=== PATIENT | male | born 1955 | race Hispanic/Latino ===

== ENCOUNTER 2018-08-14 15:46 | Observation (INO) | payer MEDICARE, OTHER ==
--- NOTE | 2018-08-14 16:11 | ED PDOC ---
Arrival/HPI - General Chief Complaint: Syncope Time Seen by Provider: 08/14/18 15:49 Historian: Patient - History of Present Illness Narrative History of Present Illness (Text): 08/14/18 16:11 A 63 ear old male presents to the emergency department for further evaluation. She notes that she was sitting in a park drinking water when he suddenly felt dizzy, lightheaded, and had a near syncopal episode. The patient notes that he did not eel his defibrillator fire. He notes that in the emergency department he is currently lightheaded. He is a pack per day smoker and daily beer drinker. The patient denies fevers, chills, headache, sore throat, cough, chest pain, shortness of breath, dyspnea on exertion, abdominal pain, nausea, vomiting, diarrhea, neck/back pain, urinary/bowel changes or any other complaint. PMD: Dr. Hernández Time/Duration: Prior to Arrival Symptom Onset: Sudden Symptom Course: Unchanged Activities at Onset: Rest, Light Context: Sitting Associated Symptoms (Text): 08/14/18 16:29 Patient was sitting in the park having a bottle water when he suddenly became dizzy and lightheaded and near syncopal. There is no actual loss of consciousness. No headache. No chest pain palpitations or dyspnea. His defibrillator did not fire. No abdominal pain nausea or vomiting. He has never felt this way previously. Past Medical History - Provider Review Nursing Documentation Reviewed: Yes - Cardiac Hx Atrial Fibrillation: Yes Hx Congestive Heart Failure: Yes Hx Hypertension: Yes - Psychiatric Hx Substance Use: No - Surgical History Other/Comment: Pacemaker, AICD Family/Social History - Physician Review Nursing Documentation Reviewed: Yes Family/Social History: No Known Family HX Smoking Status: Heavy Smoker > 10 Cigarettes Daily Hx Alcohol Use: Yes Frequency of alcohol use: Daily Hx Substance Use: No Allergies/Home Meds Allergies/Adverse Reactions: Allergies No Known Allergies Allergy (Verified 08/14/18 15:54) Home Medications: Home Meds Medication Instructions Recorded Confirmed Apixaban [Eliquis] 08/14/18 Digoxin [Lanoxin] 08/14/18 Furosemide [Lasix] 40 mg PO DAILY 08/14/18 08/14/18 Review of Systems - Physician Review All systems were reviewed & negative as marked: Yes - Review of Systems Constitutional: absent: Fatigue, Fevers ENT: absent: Sore Throat Respiratory: absent: SOB, Cough Cardiovascular: absent: Chest Pain, Palpitations, MARTINEZ Gastrointestinal: absent: Abdominal Pain, Stool Changes, Diarrhea, Nausea, Vomiting Genitourinary Male: absent: Urinary Output Changes Musculoskeletal: absent: Back Pain, Neck Pain Neurological: Dizziness. absent: Headache, Focal Weakness, Gait Changes Physical Exam Temperature: Afebrile Blood Pressure: Hypotensive Pulse: Regular Respiratory Rate: Normal Appearance: Positive for: Ill-Appearing (Chronically ill appearing.), Cachectic Pain Distress: None Mental Status: Positive for: Alert and Oriented X 3 - Systems Exam Head: Present: Atraumatic, Normocephalic Pupils: Present: PERRL Extroacular Muscles: Present: EOMI Conjunctiva: Present: Normal Ears: Present: NORMAL TM, Normal Canal. No: Erythema, TM Bulging Mouth: Present: Moist Mucous Membranes Pharnyx: No: ERYTHEMA, EXUDATE, TONSILS ENLARGED Neck: Present: Normal Range of Motion Respiratory/Chest: Present: Decreased Breath Sounds (Lung sounds diminished.). No: Accessory Muscle Use, Wheezes, Rales, Retracting, Rhonchi, Tachypneic Cardiovascular: Present: Regular Rate and Rhythm, Normal S1, S2. No: Murmurs Abdomen: No: Tenderness, Distention, Peritoneal Signs Back: Present: Normal Inspection Upper Extremity: Present: Normal Inspection. No: Cyanosis, Edema Lower Extremity: Present: Normal Inspection. No: Edema Neurological: Present: GCS=15, CN II-XII Intact, Speech Normal, Motor Func Grossly Intact, Normal Sensory Function, Normal Cerebellar Funct Skin: Present: Warm, Dry, Normal Color. No: Rashes Psychiatric: Present: Alert, Oriented x 3, Normal Insight, Normal Concentration Medical Decision Making ED Course and Treatment: 08/14/18 16:16 Impression: A 63 year old male who presents to the emergency department for further evaluation of dizziness and a post syncopal episode while sitting in a park today. Plan: -- EKG -- Chest X-ray -- Labs -- IV Fluids -- Reassess and disposition Prior Visits: Notes and results from previous visits were reviewed. Progress Notes: 08/14/18 16:30 EKG is ventricular pacing rate approximately 70 08/14/18 17:03 Discussed in detail with , who requests CT scan of the head and consultation with Dr. Kelsey and will be placed on telemetry observation. 08/14/18 18:02 Patient is feeling much better. He is no longer hypotensive. Agrees to telemetry admission. - Lab Interpretations I have reviewed the lab results: Yes - RAD Interpretation Radiology Orders: 08/14/18 15:58 CHEST PORTABLE [RAD] Stat X-ray chest one view as read by the radiologist shows no acute findings. Pacemaker present. Senior Media Director: Radiologist - EKG Interpretation Interpreted by ED Physician: Yes Type: 12 lead EKG - Scribe Statement Ashley Blackwood Provider Scribe Attestation: All medical record entries made by the Scribe were at my direction and personally dictated by me. I have reviewed the chart and agree that the record accurately reflects my personal performance of the history, physical exam, medical decision making, and the department course for this patient. I have also personally directed, reviewed, and agree with the discharge instructions and di sposition. Disposition/Present on Arrival - Present on Arrival Any Indicators Present on Arrival: No History of DVT/PE: No History of Uncontrolled Diabetes: No Urinary Catheter: No History of Decub. Ulcer: No History Surgical Site Infection Following: None - Disposition Have Diagnosis and Disposition been Completed?: Yes Diagnosis: Hypotension, Near syncope, Dizziness Disposition: HOSPITALIZED Disposition Time: 18:11 Patient Plan: Observation, Telemetry Condition: IMPROVED Forms: [facility] (Erit[place]an)
[2018-08-14] MEDS ORDERED: Sodium Chloride 0.9% 500 ML IV ONE (16:14)
[2018-08-14 16:31] LABS: BASO # 0.03 K/mm3 (0.0-2.0); BASO % 0.3 % (0.0-3.0); EOS # 0.1 (0.0-0.7); EOS % 0.9 % (1.5-5.0); GRAN # 7.65 (1.4-6.5); HEMOGLOBIN 14.1 g/dL (14.0-18.0); LYMPH # 2.1 (1.2-3.4); LYMPH % 19.8 % (22.0-35.0); MEAN CELL VOLUME 86.9 fl (80.0-105.0); MEAN CORPUSCULAR HEMOGLOBIN 29.3 pg (25.0-35.0); MEAN CORPUSCULAR HGB CONC 33.7 g/dl (31.0-37.0); MEAN PLATELET VOLUME 11.1 fl (7.0-11.0); MONO # 0.6 (0.1-0.6); RBC 4.82 10^6/uL (3.5-6.1); WHITE BLOOD COUNT 10.5 10^3/ul (4.5-11.0)
[2018-08-14 16:38] LABS: INR 1.72; PROTHROMBIN TIME 19.8 SECONDS (9.4-12.5)
[2018-08-14 16:39] LABS: ALB/GLOB RATIO 1.3 (1.1-1.8); ALBUMIN 3.9 g/dL (3.0-4.8); ALT/SGPT 23 U/L (7-56); AST/SGOT 26 U/L (17-59); BLOOD UREA NITROGEN 12 mg/dL (7-21); GFR NON-AFRICAN AMERICAN > 60
--- NOTE | 2018-08-14 16:46 | RAD ---
Date of service: 08/14/2018 HISTORY: Syncope COMPARISON: 04/19/2014 FINDINGS: LUNGS: Hyperinflation, manifestations of COPD. No active pulmonary disease. PLEURA: No significant pleural effusion identified, no pneumothorax apparent.Incidental finding(s): Stable pleural plaques/calcified left pleural space. CARDIOVASCULAR: No radiographic findings to suggest acute or significant cardiovascular disease. Position/ configuration of pacemaker device: Satisfactory. OSSEOUS STRUCTURES: No significant abnormalities. VISUALIZED UPPER ABDOMEN: Normal. OTHER FINDINGS: None. IMPRESSION: No active disease. No significant interval change compared to the prior examination(s).
[2018-08-14 16:51] LABS: B-TYPE NATRIURETIC PEPTIDE 1170 pg/mL (0-450); TROPONIN I < 0.01 ng/mL
--- NOTE | 2018-08-14 19:43 | HP ---
HISTORY OF PRESENT ILLNESS: I was called down to the ER to admit Asad to the hospital. He is a 63-year-old man who comes in with dizziness, lightheadedness, having near syncopal episode. He has had these before, but not as bad as this and he came to the emergency room, called 911. He did not feel his defibrillator fire. He is a major smoker and major daily drinker. He is a 63-year-old white male who suddenly became dizzy, lightheaded and near syncope. No actual loss of consciousness. No headache. No chest pain. No palpitation. No shortness of breath. He has a defibrillator, but it did not fire. No abdominal pain. No nausea or vomiting. He never felt this way this bad this seriously. He has a history of congestive heart failure, atrial fibrillation, hypertension. He has got pacemaker, AICD implanted. FAMILY HISTORY: There is heart disease in the family. SOCIAL HISTORY: He still smokes cigarettes a pack a day. He still drinks two to four beers every day daily. No substance abuse. ALLERGIES: NO KNOWN DRUG ALLERGIES. MEDICATIONS: He is on Eliquis, Lanoxin and Lasix. REVIEW OF SYSTEMS: No fatigue or fevers. No sore throat. No vision or hearing changes. No shortness of breath or cough. No chest pain, palpitations, or dyspnea on exertion. No abdominal pain. No stool changes. No diarrhea, nausea, vomiting, constipation. No problems urinating. No back pain. No neck pain. He was acutely dizzy. No headache, focal weakness, gait changes or loss of consciousness. PHYSICAL EXAMINATION: VITAL SIGNS: He has a 97.4 temperature, 70 pulse. He came in, he had 95/64 blood pressure, now it is up to 109/71 after about 500 mL of fluids. He did not eat or drink today and he took his Lasix. He did drink beer. He has an 80 respiratory rate, 100% O2 sat on room air. HEENT: Head: Atraumatic, normocephalic. Extraocular muscles are intact. Pupils equally, reactive to light and accommodation. Right now, no dizziness. His ears had no erythema. Mucous membranes are moist. NECK: Supple. Good range of motion. HEART: Regular rate. Normal S1, S2. LUNGS: Decreased breath sounds bilaterally, poor inspiration. He definitely sounds like a smoker, but no wheezes, rhonchi or rales. ABDOMEN: Soft, nontender. Positive bowel sounds. No guarding or rebound. No CVA tenderness. EXTREMITIES: Have no edema. NEUROLOGY: GCS is 15. Cranial nerves II-XII grossly intact. Speech is normal. He is not dizzy at this time. He can move all four extremities well. He can smile. He can stick out his tongue centrally. His eyes can close and open easily. He can follow my finger in an age pattern. Neurologic at this time, he feels back to his old normal self. SKIN: Warm and dry. PSYCHIATRIC: Alert and oriented x3. Normal insight. Normal concentration. LABORATORY DATA: He had a bunch of tests done. He has alcohol level less than 10. He has 137 sodium, potassium 3.9, BUN 12, creatinine 1.2, GFR is greater than 60, sugar is 109, calcium is 9, magnesium is 1.7, total bili is 0.5, AST is 26, ALT is 23, alk phos 67, lactate dehydrogenase is 331, total creatine kinase is 45. Troponin I is less than 0.01. BNP is high at 1170, but he looks dry. His total protein is 6.9, albumin is 3.9. He has 1.72 INR, not on Coumadin. He is on Eliquis. White count 10.5, 14.1 hemoglobin, 41.9 hematocrit, 186 platelets. Chest x-ray showed no active disease. Head CAT scan is pending. He will have a consult with Cardiology and Neurology. He will be on his Eliquis and his Lanoxin. He already had his IV 500 mL. His blood pressure looks good. I will hold his Lasix for now. I am hoping that he eats. We will watch him overnight on telemetry. He is on observation. He is here for near syncope. We will see what Cardiology and Neurology has to say. Thank you very much. Robert Higgins DO
[2018-08-14 20:44] VITALS: BMI 18.9
[2018-08-14 23:23] VITALS: O2SAT 98
[2018-08-15 05:41] VITALS: PULSE 70
[2018-08-15 06:42] LABS: HEMOGLOBIN 13.6 g/dL (14.0-18.0); MEAN CELL VOLUME 87.6 fl (80.0-105.0); MEAN CORPUSCULAR HEMOGLOBIN 30.1 pg (25.0-35.0); MEAN CORPUSCULAR HGB CONC 34.3 g/dl (31.0-37.0); MEAN PLATELET VOLUME 12.1 fl (7.0-11.0); RBC 4.52 10^6/uL (3.5-6.1); RED CELL DISTRIBUTION WIDTH 15.2 % (11.5-14.5)
[2018-08-15 07:19] LABS: ALB/GLOB RATIO 1.2 (1.1-1.8); ALBUMIN 3.3 g/dL (3.0-4.8); ALT/SGPT 22 U/L (7-56); AST/SGOT 22 U/L (17-59); BLOOD UREA NITROGEN 15 mg/dL (7-21); CALCIUM 8.7 mg/dL (8.4-10.5); GFR NON-AFRICAN AMERICAN > 60
--- NOTE | 2018-08-15 09:13 | CARD ---
APPROVED REPORT Date of service: 08/14/2018 EKG Measurement Heart [id number] <Conclusion> Electronic ventricular pacemaker: 100 % V. Paced Probably atrial fib.
--- NOTE | 2018-08-15 09:41 | CT ---
Date of service: 08/14/2018 PROCEDURE: CT HEAD WITHOUT CONTRAST. HISTORY: syncope COMPARISON: None available. TECHNIQUE: Axial computed tomography images were obtained through the head/brain without intravenous contrast. Supplemental Coronal and Sagittal projectections created and reviewed. Radiation dose: Total exam DLP = 877.28 mGy-cm. This CT exam was performed using one or more of the following dose reduction techniques: Automated exposure control, adjustment of the mA and/or kV according to patient size, and/or use of iterative reconstruction technique. FINDINGS: HEMORRHAGE: No intracranial hemorrhage. BRAIN: No mass effect or edema. Cortical and cerebellar atrophy, periventricular small vessel disease. VENTRICLES: Unremarkable. No hydrocephalus. CALVARIUM: Unremarkable. PARANASAL SINUSES: Unremarkable as visualized. No significant inflammatory changes. MASTOID AIR CELLS: Unremarkable as visualized. No inflammatory changes. OTHER FINDINGS: None. IMPRESSION: No acute intracranial abnormalities. No significant findings to account for the clinical presentation. Concordant results (preliminary interpretation) provided by [employer]. Procedure Completed: 17:46 Preliminary Report: Dictated and Authenticated: 17:51 Final Interpretation: 09:39. August 15, 2018.
[2018-08-15 13:37] VITALS: BP 114/79; RESP 18; TEMP 98.8
[2018-08-15] MEDS ORDERED: Digoxin 250 mcg (0.25 mg) Tab PO SCH (14:00)
[2018-08-15 14:22] VITALS: PULSE 70
--- NOTE | 2018-08-16 01:17 | CON ---
DATE: 08/15/2018 CARDIOLOGY CONSULT REASON FOR CONSULTATION: Near syncope. The patient is very in-cooperative in history taking as he wants to go home at any cost. Most of the information were obtained from prior documentation and from whatever patient was volunteer to answer some 20% of my questions. HISTORY OF PRESENT ILLNESS: The patient is a 63-year-old male who is being treated by Dr. Maciel, his medical consultant in [place] who has a history of an ICD placement and patient denies any coronary intervention in the past and he denies any recent discharge of the defibrillator and the patient presented because of dizziness and near syncope and there was no reported discharge of the defibrillator at this time or at any time in the recent few months. The patient denies any retrosternal chest pain. SOCIAL HISTORY: Patient is a smoker and drinker. MEDICATIONS: 25 mg three times a day, Eliquis 2.5 mg twice a day, Lanoxin 0.25 mg daily. REVIEW OF SYSTEMS: No fever or chills. No vomiting or diarrhea and no retrosternal chest pain. PHYSICAL EXAMINATION: GENERAL: The patient is an elderly male who does not appear to be in any acute distress. VITAL SIGNS: Blood pressure 101/63, heart rate 66, temperature 98, respirations 20. HEENT: Normocephalic. CHEST: Clear. HEART: S1 and S2 regular. ABDOMEN: Soft. EXTREMITIES: No edema. LABORATORY DATA: Hemoglobin and hematocrit 15.6 and 39.6, white count 9, platelet count 200,000. SMA-7: Sodium 138, potassium 3.5, chloride 105, CO2 29, glucose 89, BUN 16, creatinine 1.2. Digoxin level is 0.9. INR is 1.72, PTT is 33.0. EKG revealed ventricular paced rhythm at the rate of 70, underlying rhythm is AFib. Head CT scan without contrast, no acute intracranial findings. Chest x-ray revealed vertical heart, overinflated lungs, an ICD with biventricular pacemaker. ASSESSMENT: 1. Dizziness, near syncope. 2. History of cardiomyopathy with biventricular pacemaker placement, an implantable cardioverter defibrillator placement. 3. Chronic obstructive lung disease. 4. Atrial fibrillation. RECOMMENDATIONS: Patient can be discharged on his medications including Eliquis, Lanoxin. To be followed by his primary medical consultant, Dr. Maciel when he is cleared from the Neurology point of view. Christiano Conrad MD
--- NOTE | 2018-08-16 08:23 | DS ---
HISTORY OF PRESENT ILLNESS: He came in yesterday evening with the dizziness, first time he has ever had it so bad. I had called in Cardiology and Neurology. Hopefully, I will see him today. He wants to leave by noon on Thursday, he came in Thursday night, I said I cannot promise him that all the consultants will see him, get the tests done and if he wants to leave the hospital, sign himself out. He is comfortable this morning. He slept well. He normally drinks and smokes everyday and he has not done that yet today. PHYSICAL EXAMINATION: VITAL SIGNS: He has a 98 temp, 66 pulse, 101/63 blood pressure, 20 respiratory rate, 98% O2 saturation on room air. HEENT: His head is atraumatic, normocephalic. HEART: Regular rate. LUNGS: Decreased breath sounds, but clear. ABDOMEN: Soft. EXTREMITIES: No edema. MEDICATIONS: He is currently on meclizine, Eliquis, Lanoxin. His blood pressure is improved. When he came in, his blood pressure was low, now it is 101, which is what he tells me he is normally at. He is sleeping at 101 and only has 105, he states. LABORATORY DATA: He has a white count of 9, hemoglobin 13.6, hematocrit 39.6, platelets of 200. He has a 138 sodium, potassium 3.9, BUN 13, creatinine 1.2. GFR is greater than 60. Sugar is 89. Calcium is 8.7, total bilirubin is 0.6, AST is 22, ALT is 22, alkaline phosphatase 61, total protein is 6.1. His BNP was 1170 yesterday and his troponin I was less than 0.01. They did give him fluids in the ER and we are holding his Lasix. He is not examined in CHF at all. His head CAT scan was normal. His chest x-ray yesterday was normal, no CHF so I stopped the IV fluid and stopped the Lasix. I am hoping if Cardiology and Neurology sees him today, he could be discharged; hopefully it will happen before he AMAs and that is my plan. I will put a discharge in for later on this afternoon after Cardiology and Neurology states it is okay. I will discuss with nurse also and the patient understands my plan that he came in for dizziness, which has now resolved. Robert Higgins DO
== END 2018-08-15 17:29 | disposition left against medical advice (07) ==
LOC: ED 15:46 → ERH 17:59 → 2RNO 20:40
PROVIDERS: ADMIT Family Medicine; ATTEND Family Medicine
DX: R55 Syncope and collapse (principal); R42 Dizziness and giddiness; I11.0 Hypertensive heart disease with heart failure; I50.9 Heart failure, unspecified; I42.9 Cardiomyopathy, unspecified; I48.91 Unspecified atrial fibrillation; F17.210 Nicotine dependence, cigarettes, uncomplicated; J44.9 Chronic obstructive pulmonary disease, unspecified; Z95.810 Presence of automatic (implantable) cardiac defibrillator; Z82.49 Family history of ischemic heart disease and other diseases of the circulatory system
CPT/HCPCS: 36415; 70450; 71045; 80053; 80162; 82550; 83615; 83735; 83880; 84484; 85025; 85027; 85610; 85730; 93005; 96360; 99285; G0378; G0480; J7040